=== PATIENT | female | born 1965 | race Caucasian/White ===

== ENCOUNTER 2021-12-22 20:58 | Inpatient (IN) | payer BC, MEDICAID ==
[~2021-12-22] VITALS: Ht 309.9 cm; Wt 61.4 kg
[~2021-12-22 20:58] MED LIST: DULO-31 PO
[2021-12-22 21:22] LABS: HEMOGLOBIN 7.8 g/dl (12.0-16.0); MEAN PLATELET VOLUME 8.1 FL (7.4-10.4)
[2021-12-22 21:24] LABS: HEMATOCRIT 25.3 % (35.0-45.0); MEAN CORPUSCULAR HEMOGLOBIN 17.6 PG (27.0-31.0); MEAN CORPUSCULAR HGB CONC 30.6 g/dL (33.0-36.5); MEAN CORPUSCULAR VOLUME 57.6 FL (78-98); PLATELET COUNT 562 X10'3 (140-440); RED CELL DISTRIBUTION WIDTH 21.2 % (11.5-14.5); WHITE BLOOD COUNT 9.6 X10'3 (4.5-11.0)
[2021-12-22 21:34] LABS: ALANINE AMINOTRANSFERASE 14 U/L (12-78); ALBUMIN 3.1 G/DL (3.4-5.0); ALBUMIN/GLOBULIN RATIO 0.9 (1.1-1.5); ALKALINE PHOSPHATASE 89 IU/L (46-116); ANION GAP 9 (8-16); ASPARTATE AMINO TRANSFERASE 9 U/L (10-37); BILIRUBIN,TOTAL 0.2 MG/DL (0.1-1.0); BLOOD UREA NITROGEN 17 MG/DL (7-18); BUN/CREATININE RATIO 32.1 (6.6-38.0); CALCIUM 8.7 MG/DL (8.5-10.1); CHLORIDE 104 MMOL/L (99-107); CREATININE 0.53 MG/DL (0.40-0.90); GLUCOSE 137 MG/DL (70-104); POTASSIUM 4.3 MMOL/L (3.5-5.1); SODIUM 138 MMOL/L (135-145); TOTAL CARBON DIOXIDE 25.2 MMOL/L (24-32); TOTAL PROTEIN 6.5 G/DL (6.4-8.2); eGFR > 90 ML/MIN
[2021-12-22 21:38] LABS: LIPASE < 50 U/L (73-393)
[2021-12-22 21:46] LABS: PLATELET ESTIMATE INCREASED; TOTAL CELLS COUNTED 100
[2021-12-22 21:47] LABS: ACANTHOCYTES FEW; ANISOCYTOSIS 3+; ELLIPTOCYTES FEW; HYPOCHROMASIA 1+; LARGE PLATELETS FEW; MICROCYTOSIS 3+; POLYCHROMASIA FEW; SCHISTOCYTES FEW; TARGET CELLS FEW; TEAR DROP CELLS FEW
[2021-12-22] MEDS ORDERED: iohexol 300mg/ml 100ml inj. ONE (22:22)
[2021-12-22 23:17] LABS: APTT 23 SECONDS (22-32)
[2021-12-22] MEDS ORDERED: piperacillin/tazo 4.5gm/100ml 100 ML IV STA (23:18)
[2021-12-22] MEDS ORDERED: ondansetron/PF 4mg/2ml inj IV ONE (23:20)
[2021-12-22] MEDS ORDERED: morphine 4 MG/ML inj SYRINge IV ONE (23:20)
[2021-12-22] MEDS ORDERED: pantoprazole 40MG/D5 100ML BAG 100 ML IV SCH (23:30)
[2021-12-23] VITALS (22 sets, daily range): BP systolic 103–145; BP diastolic 52–70
[2021-12-23 00:13] LABS: CLARITY,URINE CLEAR (Clear); COLOR,URINE YELLOW (Yellow); GLUCOSE, URINE NEGATIVE (Neg); KETONES,URINE 15 mg/dl (Neg); LEUKOCYTE ESTERASE ,URINE NEGATIVE (Neg); NITRITES, URINE NEGATIVE (Neg); OCCULT BLOOD,URINE NEGATIVE (Neg); PH,URINE 5.5 (4.8-8.0); PROTEIN,URINE NEGATIVE (Neg); UROBILINOGEN,URINE 0.2 E.U/dL (0.2-1.0)
[2021-12-23 00:18] LABS: UA COLLECTION TYPE CLN CATCH MIDSTREAM
[2021-12-23] MEDS ORDERED: magnesium 4gm in 100ml NS 100 ML IV PRN (00:25)
[2021-12-23] MEDS ORDERED: magnesium 2GM in 50ml NS 50 ML IV PRN (00:25)
[2021-12-23] MEDS ORDERED: HYDROcodone/acetaminophen 5mg/325mg tablet PO PRN (00:25)
[2021-12-23] MEDS ORDERED: potassium Cl 20 mEq SR tablet PO PRN ×2 (00:25)
[2021-12-23] MEDS ORDERED: magnesium Cl slow-release 64mg tablet PO PRN (00:25)
[2021-12-23] MEDS ORDERED: potassium CL 10mEq/100ml bag 100 ML IV PRN (00:25)
[2021-12-23] MEDS: normal saline 1000ml 1,000 ML IV SCH ×2 (00:25→12:28)
[2021-12-23] MEDS ORDERED: mag hydrox/Alum hydrox/simeth 30ml oral suspension PO PRN (00:25)
[2021-12-23] MEDS ORDERED: HYDROmorphone/PF 0.2 MG/ML SYRINGE IV PRN ×3 (00:25→08:35)
[2021-12-23] MEDS ORDERED: morphine 2 MG/ML inj. syringe IV PRN ×2 (00:25→08:35)
[2021-12-23] MEDS ORDERED: magnesium hydroxide 30ml (MOM) UD suspension PO PRN (00:25)
[2021-12-23] MEDS ORDERED: HYDROcodone/acetaminophen 10/325mg tab PO PRN (00:25)
[2021-12-23] MEDS ORDERED: acetaminophen 325mg tablet PO PRN (00:25)
[2021-12-23] MEDS ORDERED: DULO60CA65 PO (00:58)
[2021-12-23] MEDS ORDERED: pantoprazole 40MG/D5 100ML BAG 100 ML IV SCH (01:00)
--- NOTE | 2021-12-23 02:29 | NUR ---
Received report from ER nurse MABEL Wooten about patient going to room 309, Dx: Abdominal pain, pt NPO at this time.OR at [address] Olivo. [id number], on IV ABT and Protonix. Morphine 2mg was given earlier at ER. Awaiting for patient arrival.
[2021-12-23] MEDS: pantoprazole 40MG/NS 100ML BAG 100 ML IV SCH ×2 (03:00→20:09)
--- NOTE | 2021-12-23 03:00 | NUR ---
The patient, SUMI MCBRIDE, 56 y/o, F admitted by ELDER CALVERT MD, was given written information regarding hospital policies, unit procedures and contact persons. See Admission information. Patient arrived to the unit via gurney, was self transf to hosp. bed, tolerated transf. well. IV continue infusing at this time. C/O abd. pain 7/10, pain meds given as ordered. VSS: T99.2, P75, RR 15, 02 97%, BP 119/55. Safety measures and comfort maintained. Call light within reach. Will continue to monitor.
[2021-12-23] MEDS: morphine 2 MG/ML inj. syringe IV PRN ×3 (03:22→19:55)
[2021-12-23] MEDS: HYDROmorph./NS 0.2 mg/ml CADD 100 ML IV SCH ×3 (03:45→23:46)
[2021-12-23] MEDS: piperacillin/tazo 4.5gm/100ml 100 ML IV SCH ×2 (06:00→15:31)
[2021-12-23] MEDS ORDERED: LIDOcaine 1% 30ml preserv. free vial ONE (06:14)
[2021-12-23] MEDS ORDERED: BUPIVAcaine 0.5% inj/PF 30 ML ONE (06:15)
--- NOTE | 2021-12-23 06:25 | NUR ---
Problems reprioritized. Patient report given, questions answered & plan of care reviewed with MABEL Ricks.
[2021-12-23] MEDS ORDERED: sevoflurane 250ml liquid IH ONE (07:00)
[2021-12-23] MEDS ORDERED: fentaNYL/PF 50MCG/1 ML 2ML syringe ONE (07:02)
[2021-12-23] MEDS ORDERED: midazolam 1 mg/ML 2ml injection ONE (07:04)
[2021-12-23] MEDS ORDERED: propofol inj 20 ML IV ONE (07:23)
[2021-12-23] MEDS ORDERED: rocuronium 10mg/ml inj IV ONE (07:23)
[2021-12-23] MEDS ORDERED: LIDOcaine 2% (20mg/ml) 5ml vial ONE (07:23)
[2021-12-23] MEDS ORDERED: albumin (Human) 5% 250ml 250 ML IV ONE (07:51)
[2021-12-23] MEDS: K and/or MAG REPLACEMENT MC SCH (08:00)
[2021-12-23] MEDS ORDERED: ondansetron/PF 4mg/2ml inj ONE (08:14)
[2021-12-23] MEDS ORDERED: dexamethasone sod phosphate 4mg/ml inj. ONE (08:14)
[2021-12-23] MEDS ORDERED: neostigmine methylsulfate 1 MG/ML 10ml vial ONE (08:15)
[2021-12-23] MEDS ORDERED: glycopyrrolate 0.2mg/ml inj ONE (08:15)
[2021-12-23] MEDS ORDERED: naloxone 0.4 mg/ml inj IV PRN (08:25)
[2021-12-23] MEDS ORDERED: CADD PCA waste documentation MC PRN (08:25)
[2021-12-23] MEDS ORDERED: HYDROmorph./NS 0.2 mg/ml CADD 100 ML IV SCH (08:25)
[2021-12-23] MEDS ORDERED: hydrALAZINE 20mg/ml inj. IV PRN (08:35)
[2021-12-23] MEDS ORDERED: ringers solution, lacted 1,000 ML IV SCH (08:35)
[2021-12-23] MEDS ORDERED: ondansetron/PF 4mg/2ml inj IV PRN (08:35)
[2021-12-23] MEDS ORDERED: morphine 4 MG/ML inj SYRINge IV PRN (08:35)
[2021-12-23] MEDS ORDERED: acetaminophen 1,000mg/100ml IV 100 ML IV PRN (08:35)
[2021-12-23] MEDS ORDERED: proCHLORperazine 10 MG/2 ml inj IV PRN (08:35)
[2021-12-23] MEDS ORDERED: meperidine/PF 25mg/ml syringe IV PRN (08:35)
[2021-12-23] MEDS ORDERED: labetalol 20mg/4ml (5mg/ml) syringe IV PRN (08:35)
--- NOTE | 2021-12-23 08:35 | NUR ---
PT ARRIVED TO RECOVERY VIA BED ACCOMPANIED BY DR. SUNSHINE-ANESTHESIA REPORT GIVEN, PT STILL SLEEPY, ABLE TO FOLLOW COMMANDS, DENIES PAIN, VSS, PIV 20G TO R A/C-LR HUNG AND RUNNING AT 100ML/HR, F/C PRESENT AND DRAINING YELLOW URINE, 4 LAP SITES TO ABD NOTED-CDI WITH TANNER-SXN INTACT-ONLY CLEAR DRAINAGE NOTED, SCDS PRESENT.
--- NOTE | 2021-12-23 09:45 | NUR ---
PT AWAKENS EASILY, FOLLOWING COMMANDS, VSS, DENIES PAIN, CLEANED UP AND ROLLED TO GET OLD LINENS OUT FORM UNDER PT, CHANGED GOWN AND PLACED TO CHUX TO HELP WITH DRAINAGE NOTED AT TANNER SITE-SMALL AMOUNT LEAKING AROUND TANNER SITE-CLEAR, SAME IN BULB, SXN STILL INTACT, NO CHANGE TO LAP SITES X4, F/C STILL DRAINING-URINE IN BAG NOT EMPTIED, SCDS ON, PIV 20G TO R A/C WITH NEW BAG LR RUNNING AT 100ML/HR, REPORT CALLED TO ROMARIO MONROE-ALL QUESTIONS ANSWERED, TAKEN BACK TO ROOM 308
--- NOTE | 2021-12-23 09:46 | NUR ---
CONT....TAKEN BACK TO ROOM 309, BED LOW AND LOCKED, CALL LIGHT IN REACH, HOOKED UP TO MONITORS, CHARGE AWARE OF PT RTN.
[2021-12-23 11:53] LABS: BASOPHILS % (AUTO) 0 % (0-1); EOSINOPHILS % (AUTO) 0 % (0-6); HEMATOCRIT 22.8 % (35.0-45.0); LYMPHOCYTES # (AUTO) 0.1 X10'3 (1.1-4.8); LYMPHOCYTES % (AUTO) 0.7 % (21-51); MEAN CORPUSCULAR HEMOGLOBIN 17.5 PG (27.0-31.0); MEAN CORPUSCULAR HGB CONC 30.7 g/dL (33.0-36.5); MEAN CORPUSCULAR VOLUME 57.2 FL (78-98); MEAN PLATELET VOLUME 8.3 FL (7.4-10.4); MONOCYTES # (AUTO) 1.4 X10'3 (0-0.9); MONOCYTES % (AUTO) 11.8 % (2-12); NEUTROPHILS # (AUTO) 10.6 X10'3 (1.8-7.7); NEUTROPHILS % (AUTO) 87.5 % (42-75); PLATELET COUNT 473 X10'3 (140-440); RED BLOOD COUNT 3.98 X10'6 (4.20-5.60); RED CELL DISTRIBUTION WIDTH 20.9 % (11.5-14.5); WHITE BLOOD COUNT 12.1 X10'3 (4.5-11.0)
--- NOTE | 2021-12-23 12:06 | NUR ---
Reported critical hgb of 7.[address] Olivo. Pt. asymptomatic. Cont. to monitor.
[2021-12-23 12:10] LABS: ANISOCYTOSIS 3+; HYPOCHROMASIA 1+; MICROCYTOSIS 3+; PLATELET ESTIMATE INCREASED; POIKILOCYTOSIS 1+
[2021-12-23 12:33] LABS: % IRON SATURATION 2 % (11-46); IRON 6 UG/DL (49-151); TOTAL IRON BINDING CAPACITY 364 UG/DL (259-388)
[2021-12-23 13:00] LABS: FERRITIN 17 NG/ML (8-252)
[2021-12-23 13:22] LABS: URINE AMPHETAMINE SCREEN NEGATIVE (Neg); URINE BARBITUATE SCREEN NEGATIVE (Neg); URINE BENZODIAZEPINES SCREEN POSITIVE (Neg); URINE CANNABINOID SCREEN NEGATIVE (Neg); URINE COCAINE SCREEN NEGATIVE (Neg); URINE METHADONE SCREEN NEGATIVE (Neg); URINE OPIATE SCREEN POSITIVE (Neg); URINE PHENCYCLIDINE SCREEN NEGATIVE (Neg)
[2021-12-23] MEDS ORDERED: BUPR1TAB45 SL (20:41)
[2021-12-23] MEDS ORDERED: temazepam 15mg capsule PO PRN (21:00)
[2021-12-24] VITALS (10 sets, daily range): BP systolic 112–135; BP diastolic 16–87
[2021-12-24] MEDS: piperacillin/tazo 4.5gm/100ml 100 ML IV SCH ×3 (00:21→16:42)
[2021-12-24] MEDS: normal saline 1000ml 1,000 ML IV SCH ×2 (04:31→23:35)
[2021-12-24] MEDS: HYDROmorph./NS 0.2 mg/ml CADD 100 ML IV SCH ×7 (06:55→23:00)
[2021-12-24 07:08] LABS: ALANINE AMINOTRANSFERASE 11 U/L (12-78); ALBUMIN 2.4 G/DL (3.4-5.0); ALBUMIN/GLOBULIN RATIO 0.9 (1.1-1.5); ALKALINE PHOSPHATASE 62 IU/L (46-116); ANION GAP 8 (8-16); ASPARTATE AMINO TRANSFERASE 6 U/L (10-37); BILIRUBIN,TOTAL 0.3 MG/DL (0.1-1.0); BLOOD UREA NITROGEN 12 MG/DL (7-18); CHLORIDE 106 MMOL/L (99-107); CREATININE 0.48 MG/DL (0.40-0.90); GLUCOSE 96 MG/DL (70-104); MAGNESIUM 1.7 MG/DL (1.5-2.4); PHOSPHORUS 2.7 MG/DL (2.3-4.5); POTASSIUM 4.2 MMOL/L (3.5-5.1); SODIUM 139 MMOL/L (135-145); TOTAL CARBON DIOXIDE 24.7 MMOL/L (24-32); TOTAL PROTEIN 5.1 G/DL (6.4-8.2); eGFR > 90 ML/MIN
[2021-12-24 07:10] LABS: BASOPHILS % (AUTO) 0.3 % (0-1); EOSINOPHILS % (AUTO) 0.2 % (0-6); LYMPHOCYTES # (AUTO) 0.5 X10'3 (1.1-4.8); LYMPHOCYTES % (AUTO) 4.7 % (21-51); MEAN CORPUSCULAR HEMOGLOBIN 17.9 PG (27.0-31.0); MEAN CORPUSCULAR HGB CONC 31.4 g/dL (33.0-36.5); MEAN PLATELET VOLUME 8.6 FL (7.4-10.4); MONOCYTES # (AUTO) 1.9 X10'3 (0-0.9); MONOCYTES % (AUTO) 17.5 % (2-12); NEUTROPHILS # (AUTO) 8.2 X10'3 (1.8-7.7); NEUTROPHILS % (AUTO) 77.3 % (42-75); PLATELET COUNT 495 X10'3 (140-440); RED BLOOD COUNT 3.62 X10'6 (4.20-5.60); RED CELL DISTRIBUTION WIDTH 20.9 % (11.5-14.5); WHITE BLOOD COUNT 10.7 X10'3 (4.5-11.0)
[2021-12-24 07:30] LABS: HEMATOCRIT 20.6 % (35.0-45.0); HEMOGLOBIN 6.5 g/dl (12.0-16.0)
--- NOTE | 2021-12-24 07:35 | NUR ---
PAGE SENT Message: 309, SUMI MCBRIDE, CRITICAL LABS, HGB 6.5, HCT 20.6, THANK YOU, ANG [id number] Transaction number: [id number]
[2021-12-24] MEDS: K and/or MAG REPLACEMENT MC SCH ×2 (08:00→19:57)
[2021-12-24 08:34] LABS: PLATELET ESTIMATE INCREASED; TOTAL CELLS COUNTED 100
[2021-12-24 08:35] LABS: ANISOCYTOSIS 3+; MICROCYTOSIS 3+
[2021-12-24 08:36] LABS: HYPOCHROMASIA 2+; POLYCHROMASIA FEW; SCHISTOCYTES FEW; TARGET CELLS FEW
[2021-12-24] MEDS: pantoprazole 40MG/NS 100ML BAG 100 ML IV SCH ×5 (08:41→19:57)
--- NOTE | 2021-12-24 13:47 | NUR ---
PAGE SENT 309, SUMI MCBRIDE, PLACE PT ON CLEAR LIQUID DIET? THANK YOU, ANG, [id number]
[2021-12-24 16:58] LABS: HEMATOCRIT 25.6 % (35.0-45.0); MEAN CORPUSCULAR HEMOGLOBIN 19.2 PG (27.0-31.0); MEAN CORPUSCULAR HGB CONC 31.2 g/dL (33.0-36.5); MEAN CORPUSCULAR VOLUME 61.5 FL (78-98); MEAN PLATELET VOLUME 8.5 FL (7.4-10.4); PLATELET COUNT 456 X10'3 (140-440); RED BLOOD COUNT 4.16 X10'6 (4.20-5.60); RED CELL DISTRIBUTION WIDTH 24.9 % (11.5-14.5); WHITE BLOOD COUNT 9.8 X10'3 (4.5-11.0)
--- NOTE | 2021-12-24 18:50 | NUR ---
Problems reprioritized. Patient report given, questions answered & plan of care reviewed with MABEL BURGESS.
[2021-12-24] MEDS: sodium ferric gluc complex inj 125 MG in normal saline 100ml IV soln 100 ML IV SCH (23:31)
[2021-12-25 00:25] VITALS: BP 130/60
[2021-12-25] MEDS: HYDROmorph./NS 0.2 mg/ml CADD 100 ML IV SCH ×4 (00:42→06:27)
[2021-12-25] MEDS: piperacillin/tazo 4.5gm/100ml 100 ML IV SCH ×4 (00:42→23:50)
[2021-12-25] MEDS: pantoprazole 40MG/NS 100ML BAG 100 ML IV SCH (03:04)
[2021-12-25 06:00] VITALS: BP 139/67
[2021-12-25 07:17] LABS: HEMOGLOBIN 8.1 g/dl (12.0-16.0); RED BLOOD COUNT 4.16 X10'6 (4.20-5.60)
[2021-12-25 07:19] LABS: HEMATOCRIT 25.6 % (35.0-45.0); MEAN CORPUSCULAR HEMOGLOBIN 19.4 PG (27.0-31.0); MEAN CORPUSCULAR HGB CONC 31.6 g/dL (33.0-36.5); MEAN CORPUSCULAR VOLUME 61.5 FL (78-98); MEAN PLATELET VOLUME 8.5 FL (7.4-10.4); PLATELET COUNT 474 X10'3 (140-440); RED CELL DISTRIBUTION WIDTH 24.5 % (11.5-14.5); WHITE BLOOD COUNT 10.5 X10'3 (4.5-11.0)
[2021-12-25 07:56] LABS: ANISOCYTOSIS 3+; MICROCYTOSIS 2+; PLATELET ESTIMATE INCREASED; TOTAL CELLS COUNTED 100
[2021-12-25 07:57] LABS: ELLIPTOCYTES FEW; HYPOCHROMASIA 1+; SCHISTOCYTES 2+; TARGET CELLS FEW; TEAR DROP CELLS 2+
[2021-12-25] MEDS: K and/or MAG REPLACEMENT MC SCH ×2 (08:00→20:00)
[2021-12-25 08:08] LABS: ALANINE AMINOTRANSFERASE 9 U/L (12-78); ALBUMIN 2.2 G/DL (3.4-5.0); ALBUMIN/GLOBULIN RATIO 0.8 (1.1-1.5); ALKALINE PHOSPHATASE 64 IU/L (46-116); ANION GAP 9 (8-16); ASPARTATE AMINO TRANSFERASE 7 U/L (10-37); BILIRUBIN,TOTAL 0.4 MG/DL (0.1-1.0); BLOOD UREA NITROGEN 7 MG/DL (7-18); BUN/CREATININE RATIO 16.7 (6.6-38.0); CALCIUM 8.1 MG/DL (8.5-10.1); CHLORIDE 107 MMOL/L (99-107); CREATININE 0.42 MG/DL (0.40-0.90); GLUCOSE 104 MG/DL (70-104); MAGNESIUM 1.8 MG/DL (1.5-2.4); PHOSPHORUS 2.6 MG/DL (2.3-4.5); POTASSIUM 3.8 MMOL/L (3.5-5.1); SODIUM 140 MMOL/L (135-145); TOTAL CARBON DIOXIDE 24.1 MMOL/L (24-32); eGFR > 90 ML/MIN
[2021-12-25] MEDS: sodium ferric gluc complex inj 125 MG in normal saline 100ml IV soln 100 ML IV SCH (09:02)
[2021-12-25 11:00] VITALS: BP 138/57
[2021-12-25] MEDS: duloxetine 30mg CAPSULE.DR PO SCH ×2 (12:00→21:20)
[2021-12-25] MEDS: pantoprazole 40mg Tablet.DR PO SCH (12:00)
--- NOTE | 2021-12-25 12:00 | NUR ---
last cadd assessment: 18.16 given, 91 given, 145 attempted.
[2021-12-25] MEDS: acetaminophen 325mg tablet PO SCH ×2 (13:32→21:21)
[2021-12-25] MEDS: buprenorphine/naloxone 8MG-2MG SUBlingual film SL SCH ×2 (13:32→21:21)
[2021-12-25 15:00] VITALS: BP 143/72
--- NOTE | 2021-12-25 18:25 | NUR ---
Problems reprioritized. Patient report given, questions answered & plan of care reviewed with MABEL GALLARDO.
[2021-12-25] MEDS: ondansetron/PF 4mg/2ml inj IV PRN (21:44)
[2021-12-25 22:00] VITALS: BP 154/87
[2021-12-26] MEDS: acetaminophen 325mg tablet PO SCH ×4 (02:11→21:01)
[2021-12-26 04:00] VITALS: BP 139/71
[2021-12-26 06:09] LABS: MEAN PLATELET VOLUME 8.2 FL (7.4-10.4)
[2021-12-26 06:13] LABS: HEMATOCRIT 27.4 % (35.0-45.0); HEMOGLOBIN 8.9 g/dl (12.0-16.0); MEAN CORPUSCULAR HEMOGLOBIN 19.5 PG (27.0-31.0); MEAN CORPUSCULAR HGB CONC 32.3 g/dL (33.0-36.5); MEAN CORPUSCULAR VOLUME 60.5 FL (78-98); PLATELET COUNT 599 X10'3 (140-440); RED BLOOD COUNT 4.54 X10'6 (4.20-5.60); RED CELL DISTRIBUTION WIDTH 25.2 % (11.5-14.5); WHITE BLOOD COUNT 9.1 X10'3 (4.5-11.0)
[2021-12-26 06:30] LABS: ALANINE AMINOTRANSFERASE 11 U/L (12-78); ALBUMIN 2.2 G/DL (3.4-5.0); ALBUMIN/GLOBULIN RATIO 0.7 (1.1-1.5); ANION GAP 6 (8-16); ASPARTATE AMINO TRANSFERASE 8 U/L (10-37); BILIRUBIN,TOTAL 0.3 MG/DL (0.1-1.0); BLOOD UREA NITROGEN 5 MG/DL (7-18); BUN/CREATININE RATIO 10.6 (6.6-38.0); CALCIUM 8.5 MG/DL (8.5-10.1); CHLORIDE 107 MMOL/L (99-107); CREATININE 0.47 MG/DL (0.40-0.90); GLUCOSE 115 MG/DL (70-104); MAGNESIUM 1.8 MG/DL (1.5-2.4); PHOSPHORUS 3.6 MG/DL (2.3-4.5); POTASSIUM 3.7 MMOL/L (3.5-5.1); SODIUM 141 MMOL/L (135-145); TOTAL CARBON DIOXIDE 27.7 MMOL/L (24-32); TOTAL PROTEIN 5.4 G/DL (6.4-8.2); eGFR > 90 ML/MIN
[2021-12-26 06:44] VITALS: BP 144/70
[2021-12-26] MEDS: pantoprazole 40mg Tablet.DR PO SCH (06:57)
[2021-12-26 07:21] LABS: TOTAL CELLS COUNTED 100
[2021-12-26 07:22] LABS: HYPERSEGMENTED NEUTROPHILS 1+; PLATELET ESTIMATE INCREASED
[2021-12-26 07:23] LABS: ANISOCYTOSIS 3+; HYPOCHROMASIA 1+; LARGE PLATELETS FEW; MICROCYTOSIS 2+
[2021-12-26 07:24] LABS: ELLIPTOCYTES FEW; SCHISTOCYTES 1+; TEAR DROP CELLS 1+
[2021-12-26 07:25] LABS: BURR CELLS 1+; POLYCHROMASIA FEW; TARGET CELLS FEW
[2021-12-26] MEDS: K and/or MAG REPLACEMENT MC SCH ×2 (08:00→20:00)
[2021-12-26] MEDS: sodium ferric gluc complex inj 125 MG in normal saline 100ml IV soln 100 ML IV SCH (08:32)
[2021-12-26] MEDS: duloxetine 30mg CAPSULE.DR PO SCH ×2 (08:35→21:00)
[2021-12-26] MEDS: buprenorphine/naloxone 8MG-2MG SUBlingual film SL SCH ×3 (08:36→21:01)
[2021-12-26 10:00] VITALS: BP 143/69
[2021-12-26] MEDS: ondansetron/PF 4mg/2ml inj IV PRN ×2 (10:23→21:22)
[2021-12-26] MEDS: piperacillin/tazo 4.5gm/100ml 100 ML IV SCH ×2 (11:02→16:51)
[2021-12-26 15:00] VITALS: BP 117/69
[2021-12-26 18:00] VITALS: BP 112/53
[2021-12-26 22:00] VITALS: BP 118/64
--- NOTE | 2021-12-27 00:30 | NUR ---
Patient has a new order of Zosyn 3.75mg/50ml instead of the old 4.5ml/100ml stocked on unit. Can pickup when ready? =)
[2021-12-27] MEDS: piperacillin/tazo 3.375gm/50ml 50 ML IV SCH ×3 (01:07→17:47)
[2021-12-27 02:00] VITALS: BP 111/64
[2021-12-27] MEDS: acetaminophen 325mg tablet PO SCH ×3 (02:00→17:47)
[2021-12-27 06:00] VITALS: BP 121/68
[2021-12-27 06:06] LABS: HEMOGLOBIN 8.7 g/dl (12.0-16.0); MEAN CORPUSCULAR HEMOGLOBIN 19.2 PG (27.0-31.0)
[2021-12-27 06:08] LABS: HEMATOCRIT 27.5 % (35.0-45.0); MEAN CORPUSCULAR HGB CONC 31.4 g/dL (33.0-36.5); MEAN CORPUSCULAR VOLUME 61.2 FL (78-98); MEAN PLATELET VOLUME 8.5 FL (7.4-10.4); PLATELET COUNT 675 X10'3 (140-440); RED CELL DISTRIBUTION WIDTH 24.6 % (11.5-14.5); WHITE BLOOD COUNT 9.4 X10'3 (4.5-11.0)
[2021-12-27 06:41] LABS: ALANINE AMINOTRANSFERASE 10 U/L (12-78); ALBUMIN 2.1 G/DL (3.4-5.0); ALBUMIN/GLOBULIN RATIO 0.7 (1.1-1.5); ANION GAP 2 (8-16); ASPARTATE AMINO TRANSFERASE 8 U/L (10-37); BILIRUBIN,TOTAL 0.2 MG/DL (0.1-1.0); BLOOD UREA NITROGEN 7 MG/DL (7-18); BUN/CREATININE RATIO 14.6 (6.6-38.0); CALCIUM 8.7 MG/DL (8.5-10.1); CHLORIDE 107 MMOL/L (99-107); CREATININE 0.48 MG/DL (0.40-0.90); GLUCOSE 91 MG/DL (70-104); MAGNESIUM 1.7 MG/DL (1.5-2.4); PHOSPHORUS 3.8 MG/DL (2.3-4.5); POTASSIUM 4.1 MMOL/L (3.5-5.1); SODIUM 141 MMOL/L (135-145); TOTAL CARBON DIOXIDE 32.3 MMOL/L (24-32); TOTAL PROTEIN 5.2 G/DL (6.4-8.2); eGFR > 90 ML/MIN
[2021-12-27] MEDS: K and/or MAG REPLACEMENT MC SCH ×2 (08:00→20:00)
[2021-12-27] MEDS: sodium ferric gluc complex inj 125 MG in normal saline 100ml IV soln 100 ML IV SCH (08:00)
[2021-12-27 08:24] LABS: TOTAL CELLS COUNTED 100
[2021-12-27 08:25] LABS: ANISOCYTOSIS 3+; MICROCYTOSIS 2+; PLATELET ESTIMATE INCREASED; POIKILOCYTOSIS 2+
[2021-12-27 08:28] LABS: HYPOCHROMASIA 1+; LARGE PLATELETS FEW
[2021-12-27 08:29] LABS: SCHISTOCYTES FEW
[2021-12-27 08:30] LABS: BURR CELLS FEW; ELLIPTOCYTES FEW; TEAR DROP CELLS FEW
[2021-12-27 08:31] LABS: TARGET CELLS FEW
[2021-12-27] MEDS: buprenorphine/naloxone 8MG-2MG SUBlingual film SL SCH ×2 (09:31→17:46)
[2021-12-27] MEDS: duloxetine 30mg CAPSULE.DR PO SCH (09:32)
[2021-12-27] MEDS: pantoprazole 40mg Tablet.DR PO SCH (09:32)
[2021-12-27 10:00] VITALS: BP 106/57
[2021-12-27] MEDS: ondansetron/PF 4mg/2ml inj IV PRN ×2 (10:01→18:03)
[2021-12-27 15:00] VITALS: BP 129/69
[2021-12-27] MEDS ORDERED: COVID-19 VACC, MRNA(PFIZER)/PF--BNT162b2 syringe IMVAC ONE (16:00)
[2021-12-27] MEDS ORDERED: pneumococcal 23-VAL P-sac vacc 25 mcg/0.5ml vial IMVAC ONE (19:45)
[2021-12-27] MEDS ORDERED: FLU VACC QS2021-22(6MOS UP)/PF 60 MCG/0.5 ML SYRINGE IM ONE (19:50)
[2021-12-27 22:00] VITALS: BP 113/63
[2021-12-28] MEDS: duloxetine 30mg CAPSULE.DR PO SCH ×3 (01:25→20:52)
[2021-12-28] MEDS: acetaminophen 325mg tablet PO SCH ×5 (01:25→20:52)
[2021-12-28] MEDS: buprenorphine/naloxone 8MG-2MG SUBlingual film SL SCH ×4 (01:26→20:52)
[2021-12-28 02:00] VITALS: BP 105/65
[2021-12-28] MEDS: piperacillin/tazo 3.375gm/50ml 50 ML IV SCH ×3 (02:28→15:58)
[2021-12-28 06:00] VITALS: BP 118/62
[2021-12-28] MEDS: pantoprazole 40mg Tablet.DR PO SCH (07:30)
[2021-12-28] MEDS: K and/or MAG REPLACEMENT MC SCH ×2 (08:00→20:00)
[2021-12-28] MEDS: sodium ferric gluc complex inj 125 MG in normal saline 100ml IV soln 100 ML IV SCH (08:31)
[2021-12-28 08:38] LABS: HEMOGLOBIN 8.3 g/dl (12.0-16.0)
[2021-12-28 08:40] LABS: HEMATOCRIT 26.6 % (35.0-45.0); MEAN CORPUSCULAR HEMOGLOBIN 19.3 PG (27.0-31.0); MEAN CORPUSCULAR HGB CONC 31.2 g/dL (33.0-36.5); MEAN CORPUSCULAR VOLUME 61.7 FL (78-98); MEAN PLATELET VOLUME 8.5 FL (7.4-10.4); PLATELET COUNT 658 X10'3 (140-440); RED BLOOD COUNT 4.32 X10'6 (4.20-5.60); RED CELL DISTRIBUTION WIDTH 24.8 % (11.5-14.5); WHITE BLOOD COUNT 9.2 X10'3 (4.5-11.0)
[2021-12-28 09:27] LABS: ALANINE AMINOTRANSFERASE 11 U/L (12-78); ALBUMIN 2.1 G/DL (3.4-5.0); ALBUMIN/GLOBULIN RATIO 0.8 (1.1-1.5); ALKALINE PHOSPHATASE 69 IU/L (46-116); ANION GAP 5 (8-16); ASPARTATE AMINO TRANSFERASE 8 U/L (10-37); BILIRUBIN,TOTAL 0.2 MG/DL (0.1-1.0); BLOOD UREA NITROGEN 9 MG/DL (7-18); CALCIUM 8.5 MG/DL (8.5-10.1); CHLORIDE 105 MMOL/L (99-107); GLUCOSE 83 MG/DL (70-104); MAGNESIUM 1.7 MG/DL (1.5-2.4); PHOSPHORUS 4.1 MG/DL (2.3-4.5); POTASSIUM 4.1 MMOL/L (3.5-5.1); SODIUM 140 MMOL/L (135-145); TOTAL CARBON DIOXIDE 30.3 MMOL/L (24-32); TOTAL PROTEIN 4.9 G/DL (6.4-8.2); eGFR > 90 ML/MIN
--- NOTE | 2021-12-28 09:37 | NUR ---
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 Pt POD #5 s/p laparoscopic Christian patch repair of perforated marginal ulcer. Patient's diet has slowly been advanced to full liquids and pt documented with mostly 50% PO intake. Current PO intake is not meeting estimated nutrient needs d/t the nature of current diet. Noted pt with c/o abdominal pain and nausea with LBM 2/12. This combination likely to impact appetite and PO intake. Diet to be advanced slowly per surgeon. If anticipated pt to be on full liquid diet for prolonged period of time or insufficient PO intake with diet advancement pt would benefit from ONS to assist with meeting estimated nutrient needs. Will continue to follow closely and make recommendations as appropriate. Recommendations: 1) Advance to regular diet as medically indicated 2) Monitor need for ONS 3) Bowel care per MD 4) Scaled weight this admit; weekly scaled weights thereafter Addendum: 12/28/21 at [address] Amended: Links added.
--- NOTE | 2021-12-28 11:22 | NUR ---
TANNER drain discontinued per Dr. Olivo's orders. Site intact, gauze applied over dressing.
[2021-12-28 12:02] LABS: TOTAL CELLS COUNTED 100
[2021-12-28 12:03] LABS: PLATELET ESTIMATE INCREASED
[2021-12-28 12:04] LABS: ANISOCYTOSIS 3+; MICROCYTOSIS 2+; POLYCHROMASIA 1+
[2021-12-28 12:05] LABS: BURR CELLS 5; LARGE PLATELETS FEW; POIKILOCYTOSIS FEW; SCHISTOCYTES FEW; TARGET CELLS 1+; TEAR DROP CELLS FEW
[2021-12-28 12:06] LABS: HYPOCHROMASIA 2+
[2021-12-28 14:00] VITALS: BP 86/55
--- NOTE | 2021-12-28 14:10 | NUR ---
Message: 309. Patient is stating she thinks she has a yeast infection. Donita MONROE [phone]
[2021-12-28 14:19] VITALS: BP 126/73
[2021-12-28] MEDS ORDERED: fluconazole 150mg tablet PO ONE (17:30)
[2021-12-28] MEDS ORDERED: OMEP40CA21 PO (17:58)
[2021-12-28] MEDS ORDERED: AMOX-580 PO (17:58)
[2021-12-28] MEDS ORDERED: CLAR500T22 PO (17:58)
[2021-12-28] MEDS ORDERED: FERR325T28 PO (18:15)
--- NOTE | 2021-12-28 18:30 | NUR ---
Problems reprioritized. Patient report given, questions answered & plan of care reviewed with Luci MONROE .
--- NOTE | 2021-12-28 22:53 | NUR ---
Patient discharge home [id number] bilateral lungs sounds clear upon auscultation abdomen soft non tender to touch with bowel sounds dressing to left lower duadrants incision to lower abdomen with fernanda in place site intact. discharge instruction given to patient verbalized understanding. BP 118/66, P 65 temp 98.4 R14 02 sat 96% on room air. Patient left facility ambulate via wheelchair to car no c/o of pain voiced no distress.
== END 2021-12-28 21:45 | disposition home or self-care (01) | DRG 327 ==
LOC: ER 20:59 → ED HOLD 12-23 00:27 → MED 3N 12-23 03:12 → UNDODISIN 12-28 21:45
PROVIDERS: ADMIT Internal Medicine; ATTEND Family Medicine
PROC: BW211ZZ Computerized Tomography (CT Scan) of Abdomen and Pelvis using Low Osmolar Contrast (ICD-10-PCS; 2021-12-22)
PROC: 8E0W4CZ Robotic Assisted Procedure of Trunk Region, Percutaneous Endoscopic Approach (ICD-10-PCS; 2021-12-23)
PROC: 0DU647Z Supplement Stomach with Autologous Tissue Substitute, Percutaneous Endoscopic Approach (ICD-10-PCS; principal; 2021-12-23 07:00)
PROC: 30233N1 Transfusion of Nonautologous Red Blood Cells into Peripheral Vein, Percutaneous Approach (ICD-10-PCS; 2021-12-24)
PROC: XW023U6 Introduction of COVID-19 Vaccine into Muscle, Percutaneous Approach, New Technology Group 6 (ICD-10-PCS; 2021-12-27)
PROC: 3E0234Z Introduction of Serum, Toxoid and Vaccine into Muscle, Percutaneous Approach (ICD-10-PCS; 2021-12-27)
PROC: 3E02340 Introduction of Influenza Vaccine into Muscle, Percutaneous Approach (ICD-10-PCS; 2021-12-27)
DX: K25.5 Chronic or unspecified gastric ulcer with perforation (principal); K80.10 Calculus of gallbladder with chronic cholecystitis without obstruction; Z20.822 Contact with and (suspected) exposure to COVID-19; G89.29 Other chronic pain; D50.9 Iron deficiency anemia, unspecified; F31.9 Bipolar disorder, unspecified; Z98.84 Bariatric surgery status; Z23 Encounter for immunization; Z79.899 Other long term (current) drug therapy
CPT/HCPCS: 0002A; 36415; 36430; 71045; 74177; 80053; 80305; 81003; 82728; 83540; 83550; 83605; 83690; 83735; 84100; 84145; 84443; 84484; 85007; 85008; 85025; 85027; 85610; 85730; 86885; 86900; 86901; 86920; 87040; 87635; 90732; 91300; 93005; 97116; 97161; 97530; 99285; A4215; A4618; A7000; C9113; C9803; G0378; J1100; J2250; J2270; J2405; J2543; J2704; J2710; J2916; J3010; J3490; J7030; J7120; P9016; P9045; Q9967; S0020